=== PATIENT | male | born 1970 | race Caucasian/White ===

== ENCOUNTER 2021-10-31 08:35 | Inpatient (IN) | payer BC, SELFPAY ==
[2021-10-31] VITALS (27 sets, daily range): BP systolic 128–158; BP diastolic 70–87; PULSE 50–80; RESP 18–41; TEMP 36.3–36.8; O2SAT 90–98; BMI 27.9
--- NOTE | ~2021-10-31 | XR_ITS ---
XR chest 1V portable 10/31/2021 10:27 Indication: Shortness of breath. Covid infection. Procedure: AP portable chest Comparison: 06/19/2007 Findings: Borderline heart size. Diffuse bilateral airspace disease, compatible with pneumonia. Edema less favored. No pleural effusion or pneumothorax. No acute osseous abnormality. Impression: 1: Diffuse bilateral airspace disease, most likely pneumonia. Edema less favored. Clinically correlat e. Reviewed, dictated and finalized at location B. SKIVER Impression: 1: Diffuse bilateral airspace disease, most likely pneumonia. Edema less favore d. Clinically correlate.
--- NOTE | ~2021-10-31 | CT_ITS ---
EXAMINATION: CTA chest PE protocol EXAM DATE: 10/31/2021 14:24 INDICATION: Shortness of breath. COVID positive. TECHNIQUE: Spiral CTA of the chest (pulmonary arteries) was performed with 100 cc Omnipaque 350 intr avenous contrast injection. Images were acquired during the pulmonary arterial phase. Coronal maxi mum intensity projection 3D-reconstructions were created by the technologist on dedicated workstation . Axial, coronal and sagittal reformatted images were reviewed. The dose-length product (DLP) for t his examination was 459.16 mGy-cm. The exposure was tailored according to patient size (auto mA exp osure control), and iterative reconstruction (ASIR) was used as additional dose reduction technique. There is no prior study for comparison. FINDINGS: There are no pulmonary emboli in the 1st through 3rd order (central and interlobar) pulmon maria teresa arteries. Some loss of attenuation in the segmental pulmonary arteries from respiratory motion, some segmental regions not confidently evaluated. No intraluminal filling defects identified. No th oracic aortic dissection. Small to moderate right, small left pleural effusions. There is diffuse bilateral groundglass airspac e disease, appearance is consistent with acute COVID pneumonia. Tracheobronchial tree is patent. Th ere is no mediastinal, hilar or axillary lymphadenopathy. There is no pneumothorax. Heart normal in size. No evidence of coronary arterial calcification. There is small sliding gastroesophageal hi atal hernia. There is thoracic spondylosis without osteoblastic or osteolytic lesions identified. IMPRESSION: 1. No central pulmonary emboli. Some limitations evaluating segmental arteries. 2. Small to moderate right, small left pleural effusions. 3. Diffuse COVID pneumonia. 4. Small hiatal hernia. Reviewed, dictated and finalized at location A. AGE SMOKER IMPRESSION: 1. No central pulmonary emboli. Some limitations evaluating segmental arteries . 2. Small to moderate right, small left pleural effusions. 3. Diffuse COVID pneumonia. 4. Small hiatal hernia.
--- NOTE | ~2021-10-31 | US_ITS ---
EXAMINATION: US venous doppler LE EXAM DATE: 10/31/2021 14:53 INDICATION: Edema EDEMA, COVID+, SOB . TECHNIQUE: Multiple grayscale, color flow and Doppler images of the lower extremity deep venous syste ms bilaterally were obtained and reviewed. There is no prior study for comparison. FINDINGS: Right side: The right common femoral, femoral and profunda veins demonstrate normal color flow, respi ratory variation, augmentation and compressibility. Compressibility, color flow confirmed within the right popliteal, posterior tibial, peroneal, and greater saphenous veins. Left side: The left common femoral, femoral and profunda veins demonstrate normal color flow, respira tory variation, augmentation and compressibility. Compressibility, color flow confirmed within the l eft popliteal, posterior tibial, peroneal, and greater saphenous veins. IMPRESSION: 1. No lower extremity deep venous thrombosis bilaterally. Reviewed, dictated and finalized at location A. ARCH LEADER
[2021-10-31 09:29] LABS: Basophils Percent Auto 0.1 % (0.2-1.2); Hematocrit 42.3 % (42.0-52.0); Hemoglobin 14.3 g/dL (14.0-18.0); Immature Granulocyte Absolute 0.12 K/mm3 (0.00-0.031); Immature Granulocyte Percent A 1.4 % (0-0.5); Lymphocytes Absolute Auto 0.32 K/mm3 (0.9-3.2); Lymphocytes Percent Auto 3.8 % (18.3-44.2); Mean Corpuscular HGB Conc 33.8 g/dl (32-36); Mean Corpuscular Hemoglobin 30.6 pg (26-34); Mean Corpuscular Volume 90.6 fl (80-100); Mean Platelet Volume 10.1 fl (7.4-10.4); Monocytes Absolute Auto 0.5 K/mm3 (0.1-0.6); Neutrophils Absolute Auto 7.6 K/mm3 (1.3-6.7); Neutrophils Percent Auto 88.7 % (45.5-73.1); Platelet Count Result 178 k/mm3 (150-375); Red Blood Count 4.67 M/mm3 (4.6-6.20); Red Cell Distribution Width 12.2 % (11.5-14.5); White Blood Count 8.5 K/mm3 (4.5-10.0)
[2021-10-31 09:56] LABS: Alanine Aminotransferase 81 U/L (4-50); Albumin Level 2.9 g/dL (3.5-5.1); Alkaline Phosphatase 77 U/L (38-126); Anion Gap 7 mmol/L (8-16); Aspartate Amino Transferase 59 U/L (17-59); Bilirubin,Total 1.2 mg/dL (0.2-1.3); Blood Urea Nitrogen 25 mg/dL (9-20); Calcium 7.9 mg/dL (8.4-10.2); Carbon Dioxide 23 mmol/L (22-30); Chloride 108 mmol/L (98-107); Estimated CRCL calculation 104 ml/min; Estimated Glomerular Filt Rate > 60; Glucose 121 mg/dL (65-110); Potassium 3.7 mmol/L (3.4-5.0); Sodium 138 mmol/L (137-145)
--- NOTE | 2021-10-31 10:42 | ED.GENADULT ---
HPI - General Adult General Chief complaint: Shortness of Breath/Dyspnea Stated complaint: Covid+,SO Time Seen by Provider: 10/31/21 10:09 Source: patient History of Present Illness HPI narrative: Patient is a 51 y/o male complaining cough and SOB for about 9 days. He states that he coughs up phlegm and blood occasionally. He also has some back pain. He tested positive for COVID 5 days on [facility] and was admitted to [place]. He states that he left AMA there because the doctor wanted him to order online non FDA approved medicine used for treating livestock. He went home and was short of breath. He was using his mother's oxygen. Related Data Home Medications Medication Instructions Recorded Confirmed pantoprazole PO 10/31/21 ropinirole mg 10/31/21 Allergies Allergy/AdvReac Type Severity Reaction Status Date / Time Penicillins Allergy Rash Verified 10/31/21 10:31 codeine AdvReac Nausea and Verified 10/31/21 10:31 Vomiting Review of Systems Constitutional: Constitutional: Denies chills, Denies fever(s), Denies headache(s) and Denies weakness Eyes: Eyes: Denies blurry vision ENT: Denies headache(s) and Denies neck pain Cardiovascular: Cardiovascular: Denies chest pain and Reports dyspnea Respiratory: Respiratory: Reports cough and Reports dyspnea Gastrointestinal: Gastrointestinal: Denies abdominal pain, Denies diarrhea, Denies nausea and Denies vomiting Genitourinary: Genitourinary: Denies hematuria and Denies dysuria Musculoskeletal: Musculoskeletal: Reports back pain and Denies neck pain Neurologic: Denies headache(s) and Denies weakness [facility] Past Medical History Medical History (Updated 10/31/21 @ 16:03 by Steph Gupta MD) Gastroesophageal reflux disease Social History Social History (Updated 10/31/21 @ 13:02 by Taniya León PA-C) Social History: The patient lives in [place] with his . Exam Const: General: well developed, in distress and ill appearing Orientation/consciousness: oriented to person, oriented to place, oriented to time and patient oriented x3 HENMT: Head: normocephalic Ears: external ears normal General nose exam: Normal external nose present Eyes: General: appearance normal, both eyes and all related structures Conjunctivae: conjunctivae normal Neck: Neck: normal visual inspection and full ROM Chest: Chest palpation & inspection: normal inspection of the chest and no tenderness Resp: Effort & Inspection: tachypneic Auscultation: rales Cardio: Rate: regular rate Rhythm: regular rhythm GI: GI Palp: No abdominal tenderness and Yes Soft to palpation Skin: General skin exam: normal color and turgor normal Neuro: General: oriented to person, oriented to place, oriented to time and patient oriented x3 Cognition (Neuro): normal cognition Extrem: General: normal to inspection, full ROM and no pedal edema Psych: Appearance: grossly normal Mental Status: mental status grossly normal Affect: normal affect Course Consultations Consultation #1: Discussed with Dr. Merida, who agrees to admit. Date: 10/31/21 Time: 11:02 Vital Signs Vital signs: Vital Signs Temperature 36.3 C L 10/31/21 08:42 Pulse Rate 71 10/31/21 08:42 Respiratory Rate 26 H 10/31/21 08:42 Blood Pressure 134/70 10/31/21 08:42 Pulse Oximetry 95 10/31/21 08:42 Temperature 36.3 C L 10/31/21 08:42 Pulse Rate 61 10/31/21 15:30 Respiratory Rate 36 H 10/31/21 15:30 Blood Pressure 154/83 H 10/31/21 15:30 Pulse Oximetry 95 10/31/21 15:30 Medical Decision Making Vital Signs Vital Signs: Vital Signs Temperature 36.3 C L 10/31/21 08:42 Pulse Rate 71 10/31/21 08:42 Respiratory Rate 26 H 10/31/21 08:42 Blood Pressure 134/70 10/31/21 08:42 Pulse Oximetry 95 10/31/21 08:42 Temperature 36.3 C L 10/31/21 08:42 Pulse Rate 61 10/31/21 15:30 Respiratory Rate 36 H 10/31/21 15:30 Blood Pressure 154/83 H 10/31/21 15:
[2021-10-31 10:50] LABS: D Dimer 0.87 ug/mL (<0.48)
[2021-10-31] MEDS: DEXAMETHASONE SOD PHOS INJ 4 MG/ML VIAL 6 MG IV PUSH (10:54)
[2021-10-31] MEDS: REMDESIVIR 200 MG/NS 250 ML 200 MG/250 ML BAG 250 MG IVPB (11:45)
[2021-10-31 13:31] LABS: Alanine Aminotransferase 83 U/L (4-50); Estimated CRCL calculation 104 ml/min; Estimated Glomerular Filt Rate > 60; Prothrombin Time 13.3 Seconds (11.1-14.7)
--- NOTE | 2021-10-31 14:00 | PM.IMHP ---
H&P: HPI History of Present Illness Date/Time: 10/31/21 14:00 Chief Complaint: Shortness of breath. Narrative: This is a very pleasant 51-year-old male with GERD and restless leg syndrome who presented to the emergency department earlier this morning for evaluation of shortness of breath. He has not been feeling well for nearly 10 days and tested positive for COVID-19 last . In fact was hospitalized at [facility] for the same but he left that facility against medical advice this morning as he had some concerns with the recommended treatment. Per be patient's report, he was instructed to order ivermectin and a long list of vitamins from an online site and that made him uncomfortable. He came immediately to this facility and he has been requiring 4 L nasal cannula to maintain his oxygen saturations in the mid 90s. Chest CTA done on arrival showed no central pulmonary emboli, small to moderate right and small left pleural effusions, as well as diffuse COVID pneumonia. At the time my evaluation he is fatigued and weak. He continues to have a cough which is occasionally productive of clear or at times pink tinged sputum. He denies fever, chills, and sweats. His smell and taste are okay however his appetite has been decreased. He denies nausea and vomiting. Initially he had some diarrhea but that has cleared. It is my understanding that his family have had similar symptoms and are also positive for COVID. He did not receive the COVID vaccination. Review of Systems Review of Systems: Twelve systems were reviewed. No history of hypertension or diabetes. He reports some mild pulse nasal drip. No significant sore throat. He denies chest pain, pleuritic pain, and palpitations. No orthopnea or PND. He has developed some mild lower extremity edema since he was initially hospitalized. No history of cardiac disease or venous thromboembolism. Except as documented, all other systems were reviewed and are negative. [facility] Past Medical History Medical History (Updated 10/31/21 @ 19:56 by Taniya León PA-C) Diverticulitis Gastroesophageal reflux disease Restless leg syndrome Surgical History Surgical History (Updated 10/31/21 @ 19:53 by Taniya León PA-C) History of left inguinal hernia repair Family History Family History (Updated 10/31/21 @ 19:53 by Taniya León PA-C) Other Cancer Social History Social History (Updated 10/31/21 @ 19:54 by Taniya León PA-C) Social History: The patient lives in [place] with his and children. He works for [employer]. Lifelong nonsmoker. No alcohol or illicit substance abuse. He designates his Isai Grey as his surrogate decision maker and he wishes to be a full code. Meds Home Medications and Allergies Home Medications Medication Instructions Recorded Confirmed Type pantoprazole 40 mg PO BID 10/31/21 10/31/21 History ropinirole 0.5 mg PO HS PRN 10/31/21 10/31/21 History Allergies Allergy/AdvReac Type Severity Reaction Status Date / Time Penicillins Allergy Rash Verified 10/31/21 17:16 codeine AdvReac Nausea and Verified 10/31/21 17:16 Vomiting Vital Signs Vital Signs - 24 hr 10/31/21 08:42 10/31/21 10:08 10/31/21 10:09 Temperature 97.4 F L Pulse Rate 71 Respiratory Rate 26 H Blood Pressure 134/70 Pulse Oximetry 95 90 90 10/31/21 10:10 10/31/21 10:15 10/31/21 10:16 Temperature Pulse Rate 56 L 66 76 Respiratory Rate 32 H 29 H 32 H Blood Pressure 151/83 H 156/87 H Pulse Oximetry 97 98 98 10/31/21 10:20 10/31/21 10:28 10/31/21 10:30 Temperature Pulse Rate 74 69 Respiratory Rate 41 H 38 H Blood Pressure 158/86 H Pulse Oximetry 91 93 93 10/31/21 10:31 10/31/21 10:32 10/31/21 10:45 Temperature Pulse Rate 70 80 67 Respiratory Rate 39 H 36 H 37 H Blood Pressure 153/80 H 153/80 H Pulse Oximetry 93 90 93 10/31/21 10:55 10/31/21 11:00 10/31/21 11:01 [place]
[2021-10-31 14:56] LABS: Lactate Dehydrogenase 1127 U/L (313-618)
--- NOTE | 2021-10-31 17:18 | ADMGEN ---
This patient, Cristian Grey, was admitted to [facility] Surg Room 312-01 at 1700. Patient/family oriented to hospital policies and general routines including ID bracelet, bed and alarms, visiting hours, pain management, procedures, bathroom and other care routines, personal items, smoking policy, room service/diet, and visiting hours. Information on how to activate the Rapid Response Team has been discussed. Patient/Family are encouraged to report perceived risks to care and to ask questions if they do not understand what they are told or what they should do.
[2021-10-31 18:17] LABS: Procalcitonin 0.1 ng/mL
[2021-10-31] MEDS: ONDANSETRON INJ 4 MG/2 ML VIAL IV PUSH (18:33)
[2021-10-31] MEDS: ACETAMINOPHEN 325 MG TABLET 650 MG PO (18:33)
[2021-10-31 20:32] LABS: NT Pro B Type Natriuretic Pept 1050 pg/mL (5-100)
[2021-10-31] MEDS: ENOXAPARIN 40 MG/0.4 ML SYRINGE SUB-Q (21:34)
[2021-10-31] MEDS: FUROSEMIDE INJ 40 MG/4 ML VIAL 20 MG IV PUSH (21:44)
[2021-10-31] MEDS: PANTOPRAZOLE 40 MG TABLET PO (21:45)
[2021-10-31 22:26] LABS: Add Urine Microscopic? YES; Appearance Urine Clear (Clear); Bilirubin Urine Negative (Negative); Blood Urine Negative (Negative); Color Urine Yellow (Yellow); Glucose Urine UA Negative (Negative); Ketones Urine Negative (Negative); Leukocyte Esterase Ur Negative LEU/UL (Negative); Mucus Urine Rare /lpf; Nitrate Urine Negative (Negative); Protein Urine Negative (Negative); RBC Urine 0-2 /hpf (0-2); Specific Grav Ur 1.019 (1.001-1.035); Squamous Epithelial Cell Urine Rare /hpf (Few); WBC Urine 0-3 /hpf
[2021-11-01] VITALS (7 sets, daily range): BP systolic 117–146; BP diastolic 65–82; PULSE 50–80; RESP 18–20; TEMP 36.2–36.8; O2SAT 90–100
[2021-11-01] MEDS: ONDANSETRON INJ 4 MG/2 ML VIAL IV PUSH ×3 (00:31→22:38)
[2021-11-01] MEDS: ACETAMINOPHEN 325 MG TABLET 650 MG PO ×4 (00:34→22:38)
[2021-11-01 06:35] LABS: Hematocrit 39.1 % (42.0-52.0); Hemoglobin 13.6 g/dL (14.0-18.0); Mean Corpuscular HGB Conc 34.8 g/dl (32-36); Mean Corpuscular Hemoglobin 30.4 pg (26-34); Mean Corpuscular Volume 87.5 fl (80-100); Mean Platelet Volume 10.2 fl (7.4-10.4); Platelet Count Result 186 k/mm3 (150-375); Red Blood Count 4.47 M/mm3 (4.6-6.20); Red Cell Distribution Width 11.9 % (11.5-14.5); White Blood Count 6.4 K/mm3 (4.5-10.0)
[2021-11-01 06:46] LABS: INR 1.2; Prothrombin Time 14.7 Seconds (11.1-14.7)
[2021-11-01 06:47] LABS: Alanine Aminotransferase 76 U/L (4-50); Albumin Level 2.8 g/dL (3.5-5.1); Alkaline Phosphatase 67 U/L (38-126); Anion Gap 5 mmol/L (8-16); Aspartate Amino Transferase 50 U/L (17-59); Bilirubin,Total 1.5 mg/dL (0.2-1.3); Blood Urea Nitrogen 23 mg/dL (9-20); CRP 3.5 mg/dL (<1.0); Calcium 7.6 mg/dL (8.4-10.2); Carbon Dioxide 26 mmol/L (22-30); Chloride 105 mmol/L (98-107); Estimated CRCL calculation 117 ml/min; Estimated Glomerular Filt Rate > 60; Glucose 95 mg/dL (65-110); Lactate Dehydrogenase 887 U/L (313-618); Magnesium 2.3 mg/dL (1.6-2.3); Potassium 3.3 mmol/L (3.4-5.0); Sodium 136 mmol/L (137-145)
[2021-11-01 07:13] LABS: Thyroid Stimulating Hormone Reflex 0.972 uIU/mL (0.465-4.68)
[2021-11-01] MEDS: DEXAMETHASONE SOD PHOS INJ 4 MG/ML VIAL 6 MG IV PUSH (09:11)
[2021-11-01] MEDS: PANTOPRAZOLE 40 MG TABLET PO (09:13)
--- NOTE | 2021-11-01 09:13 | PM.IMPN ---
Progress Note: A&P Assessment and Plan (1) Acute respiratory failure with hypoxia: Code(s): J96.01 - Acute respiratory failure with hypoxia Status: Acute Assessment and Plan: related to bilateral COVID-19 pneumonia. No evidence of central pulmonary emboli on chest CTA though evaluation is limited in the segmental arteries, this seems less likely. He is currently requiring 4 L nasal cannula to keep his SpO2 in the mid 90s. (2) Pneumonia due to 2019-nCoV: Code(s): U07.1 - COVID-19; J12.82 - Pneumonia due to coronavirus disease 2019 Status: Acute Assessment and Plan: Continue dexamethasone 6 mg daily and remdesivir 100 mg daily. pendant record regarding dexamethasone and remdesivir at the outside facility and records have been requested for review. LDH is quite high at 1127 but his other inflammatory markers are not too high (CRP 3.0, ferritin 384, D-dimer 0.87). Should he have increasing oxygen requirements, tocilizumab or baricitinib should be considered and I discussed these with the patient. (3) Restless leg syndrome: Code(s): G25.81 - Restless legs syndrome Status: Acute Assessment and Plan: Continue ropinirole as needed. (4) Gastroesophageal reflux disease: Code(s): K21.9 - Gastro-esophageal reflux disease without esophagitis Status: Acute Assessment and Plan: Continue pantoprazole. (5) Pleural effusion: Code(s): J90 - Pleural effusion, not elsewhere classified Status: Acute Assessment and Plan: started IV Lasix Subjective Date/time seen: 11/01/21 09:13 Interval history: Patient seen and examined Patient feels week still short of breath on oxygen Patient denies fever headache chest I am seeing the patient for shortness of breath Exam Narrative: Alert Chest bilateral crackles and wheeze Abdomen nontender nondistended CVS S1 + S2 Lower extremity positive edema Objective Data Vital Signs Vital Signs: Vital Signs - 24 hr 10/31/21 10:08 10/31/21 10:09 10/31/21 10:10 Temperature Pulse Rate 56 L Respiratory Rate 32 H Blood Pressure 151/83 H Pulse Oximetry 90 90 97 10/31/21 10:15 10/31/21 10:16 10/31/21 10:20 Temperature Pulse Rate 66 76 74 Respiratory Rate 29 H 32 H 41 H Blood Pressure 156/87 H 158/86 H Pulse Oximetry 98 98 91 10/31/21 10:28 10/31/21 10:30 10/31/21 10:31 Temperature Pulse Rate 69 70 Respiratory Rate 38 H 39 H Blood Pressure 153/80 H Pulse Oximetry 93 93 93 10/31/21 10:32 10/31/21 10:45 10/31/21 10:55 Temperature Pulse Rate 80 67 Respiratory Rate 36 H 37 H Blood Pressure 153/80 H Pulse Oximetry 90 93 95 10/31/21 11:00 10/31/21 11:01 10/31/21 11:15 Temperature Pulse Rate 59 L 61 67 Respiratory Rate 35 H 35 H 24 H Blood Pressure 128/75 Pulse Oximetry 95 95 92 10/31/21 11:31 10/31/21 12:01 10/31/21 12:31 Temperature Pulse Rate 57 L 58 L 56 L Respiratory Rate 34 H 32 H 29 H Blood Pressure 140/73 153/77 H 157/80 H Pulse Oximetry 93 95 96 10/31/21 13:01 10/31/21 13:31 10/31/21 14:01 Temperature Pulse Rate 61 64 61 Respiratory Rate 26 H 21 H 35 H Blood Pressure 140/72 145/75 H 155/78 H Pulse Oximetry 96 96 95 10/31/21 15:30 10/31/21 16:00 10/31/21 17:09 Temperature 97.7 F Pulse Rate 61 73 78 Respiratory Rate 36 H 24 H Blood Pressure 154/83 H 143/82 H Pulse Oximetry 95 94 10/31/21 17:30 10/31/21 20:00 11/01/21 00:00 Temperature 98.2 F 97.2 F L Pulse Rate 50 L 62 Respiratory Rate 18 18 Blood Pressure 135/72 125/66 Pulse Oximetry 94 94 90 11/01/21 04:00 11/01/21 08:00 Temperature 98.3 F 98.1 F Pulse Rate 52 L 58 L Respiratory Rate 18 18 Blood Pressure 117/65 128/73 Pulse Oximetry 93 92 Intake/Output Intake/Output: Intake & Output 10/29/21 10/30/21 10/31/21 11/01/21 23:59 23:59 23:59 23:59 Intake Total 300 900 Output Total 1525 Balance 300 -625 Me
[2021-11-01] MEDS: REMDESIVIR 100 MG/NS 250 ML 100 MG/250 ML BAG 250 MG IVPB (10:26)
[2021-11-01] MEDS: FUROSEMIDE INJ 40 MG/4 ML VIAL IV PUSH (17:35)
--- NOTE | 2021-11-01 20:04 | ECHO_ITS ---
Patient Info Name: Cristian Grey Age: 51 years : 1970 Gender: Male Ht: 71 in Wt: 200 lbs BSA: 2.15 m2 HR: 63 bpm BP: 117 / 65 mmHg Heart Rhythm: Sinus Rhythm Technical Quality: Fair Exam Date: 11/01/2021 10:37 AM Exam Location: [facility] Room: 312 Patient Status: Inpatient Admit Date: 10/31/2021 Staff Ordering Physician: Taniya León PA-C Job Boss: LAURE/ROSY Attending Provider: Elise Merida MD Referring Physician: Romelia KAUR; Exam Type: CA echo doppler color flow Study Info Indications - PLEURAL EFFUSION EDEMA Complete two-dimensional, color flow and Doppler transthoracic echocardiogram is performed. Summary 1. Complete two-dimensional, color flow and Doppler transthoracic echocardiogram is performed. 2. Hyperdynamic left ventricular systolic function with no segmental wall motion abnormalities. Ejection fraction 75%. Normal left ventricular size and thickness, with normal diastolic function. 3. Left atrial chamber dimension is mildly enlarged. 4. No significant valve disease. 5. Possible patent foramen ovale suggested by color flow Doppler. 6. Normal sinus rhythm. Left Ventricle Left ventricular chamber dimension is normal. Left ventricular systolic function is hyperdynamic, estimated at >70%. There is no increased left ventricular wall thickness. Left ventricular septal wall motion is normal. The left ventricular diastolic function is normal. Right Ventricle Right ventricular chamber dimension is normal. Right ventricular systolic function is normal. Left Atria Left atrial chamber dimension is mildly enlarged. Right Atria Right atrial chamber dimension is normal. Aortic Valve The aortic valve is trileaflet. There is no aortic valve sclerosis. There is no aortic valve stenosis. There is no aortic valve regurgitation. Pulmonic Valve The pulmonic valve is normal. There is no pulmonic valve stenosis. There is no pulmonic regurgitation. Mitral Valve The mitral valve has normal leaflets. There is no mitral valve stenosis. There is no mitral valve regurgitation. Tricuspid Valve The tricuspid valve leaflets are normal. There is no significant tricuspid valve stenosis. There is no tricuspid valve regurgitation. No pulmonary hypertension, estimated pulmonary arterial systolic pressure is Empty. Pericardium/Pleural The pericardium appears normal. There is no pericardial effusion. Inferior Vena Cava Normal inferior vena cava with >50% collapse upon inspiration consistent with Empty right atrial pressure, Empty. Aorta The aortic root size at the sinus of Valsalva is normal. The prox ascending aorta size is normal. Left Ventricular Outflow Tract Name Value Normal LVOT 2D LVOT Diameter 2.0 cm LVOT Doppler LVOT Peak Gradient 15 mmHg LVOT Mean Gradient 7 mmHg LVOT VTI 46 cm LVOT VTI/AV VTI Ratio 1.1 LVOT Stroke Volume 147 ml LVOT CO
[2021-11-02] VITALS (7 sets, daily range): BP systolic 107–121; BP diastolic 50–71; PULSE 46–80; RESP 16–18; TEMP 35.8–36.9; O2SAT 90–98
[2021-11-02] MEDS: rOPINIRole HCL 0.5 MG TABLET PO ×2 (01:19→21:06)
[2021-11-02] MEDS: PANTOPRAZOLE 40 MG TABLET PO ×3 (01:34→21:01)
[2021-11-02] MEDS: ENOXAPARIN 40 MG/0.4 ML SYRINGE SUB-Q ×2 (01:34→21:01)
[2021-11-02 07:51] LABS: INR 1.1; Prothrombin Time 14.5 Seconds (11.1-14.7)
[2021-11-02 08:05] LABS: Alanine Aminotransferase 66 U/L (4-50); Estimated CRCL calculation 104 ml/min; Estimated Glomerular Filt Rate > 60
[2021-11-02] MEDS: FUROSEMIDE INJ 40 MG/4 ML VIAL IV PUSH (08:37)
[2021-11-02] MEDS: DEXAMETHASONE SOD PHOS INJ 4 MG/ML VIAL 6 MG IV PUSH (08:37)
--- NOTE | 2021-11-02 10:42 | PM.IMPN ---
Progress Note: A&P Assessment and Plan (1) Acute respiratory failure with hypoxia: Code(s): J96.01 - Acute respiratory failure with hypoxia Status: Acute Assessment and Plan: related to bilateral COVID-19 pneumonia. No evidence of central pulmonary emboli on chest CTA though evaluation is limited in the segmental arteries, this seems less likely. He is currently requiring 4 L nasal cannula to keep his SpO2 in the mid 90s. No significant change continue to monitor (2) Pneumonia due to 2019-nCoV: Code(s): U07.1 - COVID-19; J12.82 - Pneumonia due to coronavirus disease 2019 Status: Acute Assessment and Plan: Continue dexamethasone 6 mg daily and remdesivir 100 mg daily. pendant record regarding dexamethasone and remdesivir at the outside facility and records have been requested for review. LDH is quite high at 1127 but his other inflammatory markers are not too high (CRP 3.0, ferritin 384, D-dimer 0.87). Should he have increasing oxygen requirements, tocilizumab or baricitinib should be considered and I discussed these with the patient. (3) Restless leg syndrome: Code(s): G25.81 - Restless legs syndrome Status: Acute Assessment and Plan: Continue ropinirole as needed. (4) Gastroesophageal reflux disease: Code(s): K21.9 - Gastro-esophageal reflux disease without esophagitis Status: Acute Assessment and Plan: Continue pantoprazole. (5) Pleural effusion: Code(s): J90 - Pleural effusion, not elsewhere classified Status: Acute Assessment and Plan: Treated with IV Lasix reviewed echo DC IV Lasix for now continue to monitor daily weight (6) Abnormal echocardiogram: Code(s): R93.1 - Abnormal findings on diagnostic imaging of heart and coronary circulation Status: Acute Assessment and Plan: Probable patent foraminal valve follow-up with Cardiology as outpatient Subjective Date/time seen: 11/02/21 10:42 Interval history: Patient seen and examined Patient feels week still short of breath on oxygen better than yesterday Echo showed possible patent foramen ovale Patient denies fever headache chest I am seeing the patient for shortness of breath Exam Narrative: Alert Chest bilateral crackles and wheeze Abdomen nontender nondistended CVS S1 + S2 Lower extremity positive edema Objective Data Vital Signs Vital Signs: Vital Signs - 24 hr 11/01/21 12:00 11/01/21 16:00 11/01/21 20:00 Temperature 98.3 F 97.4 F L 97.9 F Pulse Rate 50 L 50 L 63 Respiratory Rate 20 18 18 Blood Pressure 146/82 H 119/75 130/78 Pulse Oximetry 93 100 94 11/01/21 20:05 11/02/21 00:00 11/02/21 04:00 Temperature 98.4 F 97.7 F Pulse Rate 63 51 L 46 L Respiratory Rate 18 16 16 Blood Pressure 111/62 117/67 Pulse Oximetry 94 93 94 11/02/21 08:00 Temperature 96.5 F L Pulse Rate 47 L Respiratory Rate 17 Blood Pressure 121/66 Pulse Oximetry 90 Intake/Output Intake/Output: Intake & Output 10/30/21 10/31/21 11/01/21 11/02/21 23:59 23:59 23:59 23:59 Intake Total 300 2772 920 Output Total 2225 1450 Balance 300 547 -530 Meds/Results Medications: Active Medications Generic Name Dose Route Start Last Admin Trade Name Freq PRN Reason Stop Dose Admin Acetaminophen 650 mg 10/31/21 18:17 11/01/21 22:38 Acetaminophen 325 Mg Tablet PO 650 mg Q6H PRN Administration Mild Pain (1-3) or Fever Albuterol 2 puff 10/31/21 20:04 Albuterol Sulfate (*Sp) Aerosol 1 Puff INHALATION QIDRT PRN Shortness Of Breath Dexamethasone Sodium Phosphate 6 mg 11/01/21 09:00 11/02/21 08:37 Dexamethasone Sod Phos Inj 4 Mg/Ml Vial IV PUSH 11/10/21 09:01 6 mg DAILY MAKENZIE Administration Enoxaparin Sodium 40 mg 10/31/21 21:00 11/02/21 01:34 Enoxaparin 40 Mg/0.4 Ml Syringe SUB-Q 40 mg DAILY@2100 MAKENZIE Administration Furosemide 40 mg 11/01/21 17:00 11/02/21 08:37 Furosemide
[2021-11-02] MEDS: REMDESIVIR 100 MG/NS 250 ML 100 MG/250 ML BAG 250 MG IVPB (10:51)
[2021-11-02] MEDS: ACETAMINOPHEN 325 MG TABLET 650 MG PO (11:40)
[2021-11-03] VITALS (10 sets, daily range): BP systolic 103–123; BP diastolic 62–70; PULSE 50–65; RESP 16–18; TEMP 36–36.9; O2SAT 94–99
[2021-11-03 07:01] LABS: INR 1.1; Prothrombin Time 13.7 Seconds (11.1-14.7)
[2021-11-03 07:09] LABS: Alanine Aminotransferase 64 U/L (4-50); Estimated CRCL calculation 117 ml/min; Estimated Glomerular Filt Rate > 60
--- NOTE | 2021-11-03 09:32 | PM.IMPN ---
Progress Note: A&P Assessment and Plan (1) Acute respiratory failure with hypoxia: Code(s): J96.01 - Acute respiratory failure with hypoxia Status: Acute Assessment and Plan: related to bilateral COVID-19 pneumonia. No evidence of central pulmonary emboli on chest CTA though evaluation is limited in the segmental arteries, this seems less likely. He is currently requiring 4 L nasal cannula to keep his SpO2 in the mid 90s. No significant change continue to monitor (2) Pneumonia due to 2019-nCoV: Code(s): U07.1 - COVID-19; J12.82 - Pneumonia due to coronavirus disease 2019 Status: Acute Assessment and Plan: Continue dexamethasone 6 mg daily day for and remdesivir 100 mg daily day 4. Attending record regarding dexamethasone and remdesivir at the outside facility and records have been requested for review. LDH is quite high at 1127 but his other inflammatory markers are not too high (CRP 3.0, ferritin 384, D-dimer 0.87). Should he have increasing oxygen requirements, tocilizumab or baricitinib should be considered Recheck inflammatory markers in a.m. (3) Restless leg syndrome: Code(s): G25.81 - Restless legs syndrome Status: Acute Assessment and Plan: Continue ropinirole as needed. (4) Gastroesophageal reflux disease: Code(s): K21.9 - Gastro-esophageal reflux disease without esophagitis Status: Acute Assessment and Plan: Continue pantoprazole. (5) Pleural effusion: Code(s): J90 - Pleural effusion, not elsewhere classified Status: Acute Assessment and Plan: BNP 1050. Bilateral pleural effusion right more than left Treated with IV Lasix reviewed echo DC IV Lasix for now continue to monitor daily weight Echo with ejection fraction 75% normal size and thickness normal diastolic function left atrial chamber mildly enlarged, possible patent foramen ovale (6) Abnormal echocardiogram: Code(s): R93.1 - Abnormal findings on diagnostic imaging of heart and coronary circulation Status: Acute Assessment and Plan: Probable patent foraminal valve follow-up with Cardiology as outpatient Subjective Date/time seen: 11/03/21 09:32 Interval history: No overnight events. Remains afebrile. Feeling little better still has cough with the expectoration. Remains on same amount of oxygen today no chest pain Review of Systems Review of Systems: All systems reviewed & are unremarkable except as noted in HPI and below (HPI) Exam Narrative: GENERAL: The patient is well developed, not in acute distress HEENT: Nonicteric sclerae, PERRLA, EOMI. Oropharynx clear. Moist mucous membranes. Conjunctivae appear well perfused. CHEST: Chest wall is nontender. HEART: Regular rate and rhythm without murmur, rubs, or gallops LUNGS: Coarse breath sounds bilaterally. no respiratory distress ABDOMEN: Soft, positive bowel sounds, non-tender, no organomegaly. SKIN: No rash, no excessive bruising, petechiae, or purpura. NEUROLOGIC: Cranial nerves II-XII intact, alert and oriented x 3, no gross motor deficits EXTREMITIES: no edema, cyanosis or clubbing Objective Data Vital Signs Vital Signs: Vital Signs - 24 hr 11/02/21 11:36 11/02/21 12:00 11/02/21 16:00 Temperature 96.8 F L 97.3 F L Pulse Rate 80 56 L 62 Respiratory Rate 18 18 Blood Pressure 120/71 107/50 L Pulse Oximetry 95 98 11/02/21 20:00 11/03/21 00:00 11/03/21 00:38 Temperature 97.5 F L 97.0 F L Pulse Rate 54 L 54 L 54 L Respiratory Rate 16 16 Blood Pressure 113/67 111/70 Pulse Oximetry 94 94 11/03/21 04:00 11/03/21 08:00 Temperature 97.0 F L 96.8 F L Pulse Rate 50 L 51 L Respiratory Rate 16 16 Blood Pressure 103/62 112/67 Pulse Oximetry 94 96 Intake/Output Intake/Output: Intake & Output 10/31/21 11/01/21 11/02/21 11/03/21 23:59 23:59 23:59 23:59 Intake Total 300 2772 2030 200 Output Total 2225 2550 1000 Balance 300 289 -371 -298 Meds/R
[2021-11-03] MEDS: DEXAMETHASONE SOD PHOS INJ 4 MG/ML VIAL 6 MG IV PUSH (09:42)
[2021-11-03] MEDS: PANTOPRAZOLE 40 MG TABLET PO ×2 (09:42→21:08)
[2021-11-03] MEDS: REMDESIVIR 100 MG/NS 250 ML 100 MG/250 ML BAG 250 MG IVPB (11:00)
[2021-11-03] MEDS: ENOXAPARIN 40 MG/0.4 ML SYRINGE SUB-Q (21:08)
[2021-11-03] MEDS: rOPINIRole HCL 0.5 MG TABLET PO (22:51)
[2021-11-04] VITALS (9 sets, daily range): BP systolic 103–117; BP diastolic 54–72; PULSE 45–77; RESP 15–20; TEMP 36.1–36.8; O2SAT 91–98
[2021-11-04 06:25] LABS: Basophils Percent Auto 0.2 % (0.2-1.2); Eosinophils Absolute Auto 0.1 K/mm3 (0-0.3); Eosinophils Percent Auto 1.8 % (0-4.4); Hematocrit 39.6 % (42.0-52.0); Hemoglobin 13.7 g/dL (14.0-18.0); Immature Granulocyte Absolute 0.05 K/mm3 (0.00-0.031); Lymphocytes Absolute Auto 0.72 K/mm3 (0.9-3.2); Lymphocytes Percent Auto 14.6 % (18.3-44.2); Mean Corpuscular HGB Conc 34.6 g/dl (32-36); Mean Corpuscular Volume 86.7 fl (80-100); Mean Platelet Volume 10.1 fl (7.4-10.4); Monocytes Absolute Auto 0.6 K/mm3 (0.1-0.6); Neutrophils Absolute Auto 3.5 K/mm3 (1.3-6.7); Neutrophils Percent Auto 70.4 % (45.5-73.1); Platelet Count Result 217 k/mm3 (150-375); Red Blood Count 4.57 M/mm3 (4.6-6.20); Red Cell Distribution Width 11.5 % (11.5-14.5); White Blood Count 4.9 K/mm3 (4.5-10.0)
[2021-11-04 06:34] LABS: Prothrombin Time 13.2 Seconds (11.1-14.7)
[2021-11-04 06:38] LABS: Alanine Aminotransferase 80 U/L (4-50); Anion Gap 4 mmol/L (8-16); Blood Urea Nitrogen 20 mg/dL (9-20); CRP 1.6 mg/dL (<1.0); Carbon Dioxide 28 mmol/L (22-30); Chloride 101 mmol/L (98-107); Estimated CRCL calculation 117 ml/min; Estimated Glomerular Filt Rate > 60; Glucose 98 mg/dL (65-110); Lactate Dehydrogenase 718 U/L (313-618); Potassium 3.9 mmol/L (3.4-5.0); Sodium 133 mmol/L (137-145)
[2021-11-04] MEDS: DEXAMETHASONE SOD PHOS INJ 4 MG/ML VIAL 6 MG IV PUSH (08:23)
[2021-11-04] MEDS: PANTOPRAZOLE 40 MG TABLET PO (08:23)
[2021-11-04] MEDS: REMDESIVIR 100 MG/NS 250 ML 100 MG/250 ML BAG 250 MG IVPB (11:05)
--- NOTE | 2021-11-04 12:27 | PM.IMPN ---
Progress Note: A&P Assessment and Plan (1) Acute respiratory failure with hypoxia: Code(s): J96.01 - Acute respiratory failure with hypoxia Status: Acute Assessment and Plan: related to bilateral COVID-19 pneumonia. No evidence of central pulmonary emboli on chest CTA though evaluation is limited in the segmental arteries, this seems less likely. He is currently requiring 4 L nasal cannula to keep his SpO2 in the mid 90s. Oxygen requirement is better today inflammatory markers improved (2) Pneumonia due to 2019-nCoV: Code(s): U07.1 - COVID-19; J12.82 - Pneumonia due to coronavirus disease 2019 Status: Acute Assessment and Plan: Continue dexamethasone 6 mg daily day 5 and remdesivir 100 mg daily day 5. Attending record regarding dexamethasone and remdesivir at the outside facility and records have been requested for review. LDH is quite high at 1127 but his other inflammatory markers are not too high (CRP 3.0, ferritin 384, D-dimer 0.87). Should he have increasing oxygen requirements, tocilizumab or baricitinib should be considered Recheck inflammatory markers slowly improving CRP lower LDH lower (3) Restless leg syndrome: Code(s): G25.81 - Restless legs syndrome Status: Acute Assessment and Plan: Continue ropinirole as needed. (4) Gastroesophageal reflux disease: Code(s): K21.9 - Gastro-esophageal reflux disease without esophagitis Status: Acute Assessment and Plan: Continue pantoprazole. (5) Pleural effusion: Code(s): J90 - Pleural effusion, not elsewhere classified Status: Acute Assessment and Plan: BNP 1050. Bilateral pleural effusion right more than left Treated with IV Lasix reviewed echo DC IV Lasix for now continue to monitor daily weight Echo with ejection fraction 75% normal size and thickness normal diastolic function left atrial chamber mildly enlarged, possible patent foramen ovale (6) Abnormal echocardiogram: Code(s): R93.1 - Abnormal findings on diagnostic imaging of heart and coronary circulation Status: Acute Assessment and Plan: Probable patent foraminal valve follow-up with Cardiology as outpatient Subjective Date/time seen: 11/04/21 12:27 Interval history: No overnight events. Oxygen requirement is down to 2 L. remains afebrile. Labs reviewed patient seen and examined Review of Systems Review of Systems: All systems reviewed & are unremarkable except as noted in HPI and below (HPI) Exam Narrative: GENERAL: The patient is well developed, not in acute distress HEENT: Nonicteric sclerae, PERRLA, EOMI. Oropharynx clear. Moist mucous membranes. Conjunctivae appear well perfused. CHEST: Chest wall is nontender. HEART: Regular rate and rhythm without murmur, rubs, or gallops LUNGS: Coarse breath sounds bilaterally. no respiratory distress ABDOMEN: Soft, positive bowel sounds, non-tender, no organomegaly. SKIN: No rash, no excessive bruising, petechiae, or purpura. NEUROLOGIC: Cranial nerves II-XII intact, alert and oriented x 3, no gross motor deficits EXTREMITIES: no edema, cyanosis or clubbing Objective Data Vital Signs Vital Signs: Vital Signs - 24 hr 11/03/21 15:55 11/03/21 16:00 11/03/21 20:00 Temperature 97.4 F L 98.5 F Pulse Rate 55 L 65 52 L Respiratory Rate 17 18 Blood Pressure 109/62 123/64 Pulse Oximetry 98 99 11/03/21 20:05 11/04/21 00:00 11/04/21 04:00 Temperature 96.9 F L 98.2 F Pulse Rate 52 L 77 51 L Respiratory Rate 18 18 18 Blood Pressure 106/54 L 103/55 L Pulse Oximetry 99 97 98 11/04/21 08:00 11/04/21 08:24 Temperature 97.0 F L Pulse Rate 54 L 60 Respiratory Rate 16 Blood Pressure 117/66 Pulse Oximetry 98 98 Intake/Output Intake/Output: Intake & Output 11/01/21 11/02/21 11/03/21 11/04/21 23:59 23:59 23:59 23:59 Intake Total 2772 2330 1332 1118 Output Total 2225 2550 1000 700 Balance 547 -220 332 418 Meds/Resu
--- NOTE | 2021-11-04 15:45 | HOMEO2EVAL ---
Evaluation was performed at [facility] Home Oxygen Evaluation RC: Home Oxygen (O2) Evaluation Start: 11/04/21 14:04 Freq: ONCE Status: Active Protocol: RPE Activity Type Activity Date Activity User E-Sign Co-Sign Detail Recorded Client Recorded Date Recorded By Document 11/04/21 15:37 CLC [id number] 11/04/21 15:44 CLC Document 11/04/21 15:40 CLC [id number] 11/04/21 15:44 CLC 11/04/21 11/04/21 15:37 15:40 Home O2 Evaluation Test Phase Resting Exercise Oxygen Delivery Room Air Room Air Pulse Oximetry (90-100 %) 91 94 Pulse Rate (60-100 beats/min) 58 L 74 Activity Tolerance Excellent Ambulation Distance (feet) 300 Treatment Charges O2 Evaluation - Inpatient
--- NOTE | 2021-11-04 16:50 | PM.DS ---
DS: Admitting Diagnosis Discharge Date 11/04/2021 Admitting Diagnosis COVID pneumonia DS: Discharge Diagnosis Discharge Diagnosis (1) Acute respiratory failure with hypoxia: Code(s): J96.01 - Acute respiratory failure with hypoxia Status: Acute Assessment and Plan: related to bilateral COVID-19 pneumonia. No evidence of central pulmonary emboli on chest CTA though evaluation is limited in the segmental arteries, this seems less likely. He was requiring 4 L nasal cannula to keep his SpO2 in the mid 90s. Oxygen requirement continue to improve with no oxygen required at the time of discharge. There was also improvement in his inflammatory markers that will monitor during the hospital stay. (2) Pneumonia due to 2019-nCoV: Code(s): U07.1 - COVID-19; J12.82 - Pneumonia due to coronavirus disease 2018 Status: Acute Assessment and Plan: Continue dexamethasone 6 mg daily day 5 and remdesivir 100 mg daily day 5. Attending record regarding dexamethasone and remdesivir at the outside facility and records have been requested for review. LDH is quite high at 1127 but his other inflammatory markers are not too high (CRP 3.0, ferritin 384, D-dimer 0.87). Should he have increasing oxygen requirements, tocilizumab or baricitinib should be considered Recheck inflammatory markers slowly improving CRP lower LDH lower Finishes remdesivir course during the hospital stay in Will continue Decadron 6 mg p.o. daily for total 10 days course (3) Restless leg syndrome: Code(s): G25.81 - Restless legs syndrome Status: Acute Assessment and Plan: Continue ropinirole as needed. (4) Gastroesophageal reflux disease: Code(s): K21.9 - Gastro-esophageal reflux disease without esophagitis Status: Acute Assessment and Plan: Continue pantoprazole. (5) Pleural effusion: Code(s): J90 - Pleural effusion, not elsewhere classified Status: Acute Assessment and Plan: BNP 1050. Bilateral pleural effusion right more than left Treated with IV Lasix reviewed echo DC IV Lasix for now continue to monitor daily weight Echo with ejection fraction 75% normal size and thickness normal diastolic function left atrial chamber mildly enlarged, possible patent foramen ovale (6) Abnormal echocardiogram: Code(s): R93.1 - Abnormal findings on diagnostic imaging of heart and coronary circulation Status: Acute Assessment and Plan: Probable patent foraminal valve follow-up with Cardiology as outpatient DS: Summary Hospital Course Hospital Course: See above Time Spent with Patient Time attestation: Total time spent providing and/or coordinating discharge services: 45 minutes Exam Narrative: GENERAL: The patient is well developed, not in acute distress HEENT: Nonicteric sclerae, PERRLA, EOMI. Oropharynx clear. Moist mucous membranes. Conjunctivae appear well perfused. CHEST: Chest wall is nontender. HEART: Regular rate and rhythm without murmur, rubs, or gallops LUNGS: Coarse breath sounds bilaterally. no respiratory distress ABDOMEN: Soft, positive bowel sounds, non-tender, no organomegaly. SKIN: No rash, no excessive bruising, petechiae, or purpura. NEUROLOGIC: Cranial nerves II-XII intact, alert and oriented x 3, no gross motor deficits EXTREMITIES: no edema, cyanosis or clubbing DS: Data Data Completed and Pending Labs on day of discharge: Labs from last 24 hours 11/04/21 11/04/21 11/04/21 06:07 06:07 06:07 WBC 4.9 RBC 4.57 L Hgb 13.7 L Hct 39.6 L MCV 86.7 MCH 30.0 MCHC 34.6 RDW 11.5 Plt Count 217 MPV 10.1 Immature Gran % (Auto) 1.0 H Neut % (Auto) 70.4 Lymph % (Auto) 14.6 L Dixon % (Auto) 12.0 H Eos % (Auto) 1.8 Baso % (Auto) 0.2 Lymph # (Auto) 0.72 L Dixon # (Auto) 0.6 Eos # (Auto) 0.1 Baso # (Auto) 0.0 Abs Immat Gran (auto) 0.05 H Absolute Neuts (auto) 3.5 Absolute Nucl
== END 2021-11-04 18:35 | disposition home or self-care (01) | DRG 177 ==
LOC: ANHED 10:58 → ANH3MEDSUR 14:41
PROVIDERS: Physician Assistant; Admitting Provider Family Medicine; Emergency Provider Emergency Medicine; PCP Family Medicine; Visit Provider Internal Medicine
DX: U07.1 COVID-19 (principal); J12.82 Pneumonia due to coronavirus disease 2019; J96.01 Acute respiratory failure with hypoxia; J91.8 Pleural effusion in other conditions classified elsewhere; G25.81 Restless legs syndrome; K21.9 Gastro-esophageal reflux disease without esophagitis; R93.1 Abnormal findings on diagnostic imaging of heart and coronary circulation; Z79.899 Other long term (current) drug therapy; Z88.0 Allergy status to penicillin; Z88.8 Allergy status to other drugs, medicaments and biological substances
CPT/HCPCS: 36415; 71045; 71275; 80048; 80053; 81001; 82565; 82728; 83615; 83735; 83880; 84145; 84443; 84460; 85025; 85027; 85380; 85610; 86140; 87070; 87205; 93306; 93970; 94618; 96374; 99291; A9270; J0456; J0696; J1100; J1650; J1940; J2405; Q9967

== ENCOUNTER 2022-06-17 18:30 | Emergency (ER) | payer BC, SELFPAY ==
--- NOTE | ~2022-06-17 | XR_ITS ---
EXAM: XR finger 2nd LT min 2V DATE: 06/17/2022 19:14 HISTORY: SMASHED FINGER 1 WEEK AGO, SWELLING,PAIN/PUSTO TIP OF FINGER . COMPARISON: None available. FINDINGS: Normal mineralization. No fracture or dislocation. No lytic or blastic lesion. Osteoarthri tic changes, most evident in the DIP and trapeziometacarpal joints. No erosion or periosteal change. Focal soft tissue swelling over the nail/nailbed. IMPRESSION: No acute osseous finding in the left second digit. Distal soft tissue swelling. Reviewed, dictated and finalized at location K. IMPRESSION: No acute osseous finding in the left second digit. Distal soft tiss ue swelling.
[2022-06-17 18:46] VITALS: BP 153/81; PULSE 52; RESP 18; TEMP 36.3; O2SAT 100
--- NOTE | 2022-06-17 21:04 | ED.UPPEXIN ---
HPI - Extremity Injury (Upper) General Chief Complaint: Extremity Injury, Upper Stated Complaint: finger injury Time Seen by Provider: 06/17/22 20:36 History of Present Illness HPI narrative: Patient is a 52-year-old male here for evaluation of pain and swelling around his left second fingertip. Patient states that he smashed his finger in between a wood siding board about a week ago. States that he noted some redness and swelling around his fingertip developed about 2 days ago. He presented to urgent care facility today, who attempted drainage but was unsuccessful so sent him to the ED. He denies any fevers, chills, swelling of the proximal finger. He has not attempted any medication for pain. Related Data Home Medications Medication Instructions Recorded Confirmed pantoprazole 40 mg tablet,delayed 40 mg PO BID 10/31/21 10/31/21 release ropinirole 0.5 mg tablet 0.5 mg PO HS PRN Restless Leg 10/31/21 10/31/21 Syndrome Allergies Allergy/AdvReac Type Severity Reaction Status Date / Time codeine Allergy Nausea and Verified 06/17/22 19:43 Vomiting Penicillins Allergy Rash Verified 10/31/21 17:16 Review of Systems Review of Systems: Gen.: Denies fevers or chills Eyes: Denies eye pain or visual change ENT: Denies congestion Respiratory: Denies shortness of breath or cough CV: Denies chest pain or palpitations GI: Denies abdominal pain nausea, emesis or diarrhea denies burning, urgency, frequency or hematuria Musculoskeletal: Denies back pain or muscle pain Neuro: Denies numbness, tingling, weakness or focal weakness Skin: Reports left 2nd fingertip swelling redness Except as documented, all other systems reviewed and negative PMFSH Past Medical History Medical History Diverticulitis Gastroesophageal reflux disease Restless leg syndrome Surgical History Surgical History History of left inguinal hernia repair Family History Family History (Updated 10/31/21 @ 19:53 by Taniya León PA-C) Other Cancer Social History Social History (Updated 10/31/21 @ 19:54 by Taniya León PA-C) Social History: The patient lives in [place] with his and children. He works for [employer]. Lifelong nonsmoker. No alcohol or illicit substance abuse. He designates his Isai Grey as his surrogate decision maker and he wishes to be a full code. Exam Narrative: Gen: Alert, oriented, no acute distress Eyes: EOMI, no icterus Pulm: Respirations even and unlabored, symmetric thorax expansion, no audible stridor or visible cyanosis CV: Regular rate per telemetry GI: No distension, no voluntary/involuntary guarding Neuro: AOx4, moves all extremities without apparent difficulty or weakness, follows commands Skin: Left second digit has area of swelling and fluctuance around the nailbed. No tenderness along flexor tendon. No swelling along the digit. Full range of motion in the digit. Psych: Normal mood/affect, insight/judgement good, adequate fund of knowledge, recent/remote memory intact Course Course Emergency Course: Paronychia was drained with 18-gauge needle, and patient tolerated procedure well, large amount of purulent material expressed from finger with resolution of symptoms. Vital Signs Vital signs: Vital Signs Temperature 97.3 F L 06/17/22 18:46 Pulse Rate 52 L 06/17/22 18:46 Respiratory Rate 18 06/17/22 18:46 Blood Pressure 153/81 H 06/17/22 18:46 Pulse Oximetry 100 06/17/22 18:46 Oxygen Delivery Room Air 06/17/22 18:46 Temperature 97.3 F L 06/17/22 18:46 Pulse Rate 52 L 06/17/22 18:46 Respiratory Rate 18 06/17/22 18:46 Blood Pressure 153/81 H 06/17/22 18:46 Pulse Oximetry 100 06/17/22 18:46 Oxygen Delivery Room Air 06/17/22 18:46 MDM - Extremity Injury (Upper) MDM Narrative Medical decision making na
== END 2022-06-17 21:28 | disposition home or self-care (01) ==
PROVIDERS: Emergency Provider Emergency Medicine; PCP Family Medicine
DX: L03.012 Cellulitis of left finger (principal); K21.9 Gastro-esophageal reflux disease without esophagitis; G25.81 Restless legs syndrome
CPT/HCPCS: 73140; 99283

== ENCOUNTER 2022-11-03 10:34 | Emergency (ER) | payer OTHER, BC, SELFPAY ==
--- NOTE | ~2022-11-03 | XR_ITS ---
XR foot RT min 3V 11/03/2022 11:55 INDICATION: Right foot pain PROCEDURE: 4 views right foot COMPARISON: No prior studies for comparison. FINDINGS: There is a healing fracture proximal shaft of the fifth metatarsal with subtle periosteal r eaction. The soft tissues appear within normal limits. No foreign bodies are identified. IMPRESSION: 1: Healing nondisplaced fracture proximal shaft of the right fifth metatarsal. Reviewed, dictated and finalized at location A. INE ATTENDANT
[2022-11-03 11:11] VITALS: BP 162/94; PULSE 64; RESP 16; TEMP 36.6; O2SAT 97
--- NOTE | 2022-11-03 12:17 | ED.LOWEXIN ---
HPI - Extremity Injury (Lower) General Chief Complaint: Extremity Injury, Lower Stated Complaint: foot injury Time Seen by Provider: 11/03/22 11:55 History of Present Illness HPI Narrative: 52-year-old male presenting to the emergency department for evaluation of an injury to his right foot. Patient states on Saturday he was at work when he missed a step causing him to roll his right foot. Patient reports pain of the foot denies any significant pain of the ankle. Patient states the pain is worsened with ambulation. Related Data Home Medications Medication Instructions Recorded Confirmed pantoprazole 40 mg tablet,delayed 40 mg PO BID 10/31/21 10/31/21 release ropinirole 0.5 mg tablet 0.5 mg PO HS PRN Restless Leg 10/31/21 10/31/21 Syndrome Allergies Allergy/AdvReac Type Severity Reaction Status Date / Time codeine Allergy Nausea and Verified 06/17/22 19:43 Vomiting Penicillins Allergy Rash Verified 10/31/21 17:16 Review of Systems Review of Systems: CONSTITUTIONAL: Denies fever, chills, or sweats. EYES: Denies visual changes, redness, or discharge. ENT: Denies rhinorrhea, congestion, sore throat, or otalgia. CARDIOVASCULAR: Denies chest pain, palpitations, or edema. RESPIRATORY: Denies cough or dyspnea. GASTROINTESTINAL: Denies abdominal pain, nausea, vomiting, or diarrhea. GENITOURINARY: Denies dysuria or hematuria. SKIN: Denies rash or itching. MUSCULOSKELETAL: See HPI NEUROLOGIC: Denies headache, numbness, or weakness. [facility] Past Medical History Medical History Diverticulitis Gastroesophageal reflux disease Restless leg syndrome Surgical History Surgical History History of left inguinal hernia repair Family History Family History (Updated 10/31/21 @ 19:53 by Taniya León PA-C) Other Cancer Social History Social History (Updated 10/31/21 @ 19:54 by Taniya León PA-C) Social History: The patient lives in [place] with his and children. He works for [employer]. Lifelong nonsmoker. No alcohol or illicit substance abuse. He designates his Isai Grey as his surrogate decision maker and he wishes to be a full code. Exam Narrative: APPEARANCE: Well appearing, no pain, no distress, well-nourished. HEAD: normocephalic, atraumatic. EYES: PERRLA/EOMI, conjunctivae clear. NOSE: Normal no drainage NECK: Supple. No adenopathy, no masses. RESPIRATORY: Airway patent, respirations nonlabored. Clear to auscultation bilaterally, no rales, rhonchi, wheezing. CARDIOVASCULAR: Regular rate and rhythm without murmurs rubs or gallops. ABDOMINAL: Soft, nontender, nondistended, normal bowel sounds MUSCULOSKELETAL: No tenderness to right knee, proximal tib-fib, right ankle. Some tenderness to lateral foot. NEURO: Alert. Cranial nerves II through XII intact. Grossly intact SKIN: Warm, dry. Normal Color Course Vital Signs Vital signs: Vital Signs Temperature 97.8 F 11/03/22 11:11 Pulse Rate 64 11/03/22 11:11 Respiratory Rate 16 11/03/22 11:11 Blood Pressure 162/94 H 11/03/22 11:11 Pulse Oximetry 97 11/03/22 11:11 Oxygen Delivery Room Air 11/03/22 11:11 Temperature 97.8 F 11/03/22 11:11 Pulse Rate 64 11/03/22 11:11 Respiratory Rate 16 11/03/22 11:11 Blood Pressure 162/94 H 11/03/22 11:11 Pulse Oximetry 97 11/03/22 11:11 Oxygen Delivery Room Air 11/03/22 11:11 MDM - Extremity Injury (Lower) Imaging Data Radiologist's impression: Impressions Foot X-Ray 11/03/22 11:59 IMPRESSION: 1: Healing nondisplaced fracture proximal shaft of the right fifth metatarsal. Discharge Plan Discharge Clinical Impression: Fracture of fifth metatarsal bone Qualifiers: Encounter type: initial encounter Fracture type: closed Fracture alignment: nondisplaced Laterality: right Qualified Code(s
== END 2022-11-03 12:49 | disposition home or self-care (01) ==
PROVIDERS: Emergency Provider Emergency Medicine; PCP Family Medicine
DX: S92.354A Nondisplaced fracture of fifth metatarsal bone, right foot, initial encounter for closed fracture (principal); X50.0XXA Overexertion from strenuous movement or load, initial encounter
CPT/HCPCS: 73630; 99284

== ENCOUNTER 2024-12-21 09:19 | Outpatient (CLI) | payer BC, SELFPAY ==
--- NOTE | ~2024-12-21 | XR_ITS ---
EXAMINATION: XR lumbar spine 2-3V DATE: 12/21/2024 09:41 INDICATION: Low back pain. TECHNIQUE: 3 views of lumbar spine were obtained. COMPARISON: None. FINDINGS: Bone alignment is normal. There is mild chronic anterior wedging of T12 and L1 vertebral yun dies. Intervertebral disc heights are normal. There are endplate osteophytes at multiple levels. Ther e is multilevel facet joint osteoarthritis, severe in lower lumbar spine. IMPRESSION: 1. Mild lumbar spondylosis. Reviewed, dictated and finalized at location B. OR ANALYST IMPRESSION: 1. Mild lumbar spondylosis.
--- OUTSIDE RECORDS SUMMARY | 2024-12-24 12:23 | XMS_ITS | Referral Summary ---
Author Organization [facility] [email or web address] Address [address] [place] [address] Care Team Providers Care Commander Internal Affairs Name Role Phone Carla Whiteside MD Primary Care Provider [phone] Source Comments [facility] [email or web address],non-owned [facility] and Associated Physician Practices is amultiple site organization consisting of ambulatory clinics and hospital sitesin [place], [place], [place] and [place]. This disclosure is being madepursuant to the Care Everywhere program and may not contain all information available regarding this patient. Last updated 18.[facility] [email or web address] Allergies Active Allergy Reactions Criticality Noted Date Comments Penicillins Rash Medium 04/04/2017 Medications * Be aware that medications may not be up to date on this document. Alwaysverify current medications with the patient. Medication Sig Dispensed Refills Start Date End Date Status PANTOPRAZOLE SODIUM PO Ac tive Active Problems No known active problems Social History Tobacco Use Types Packs/Day Years Used Date Smoking Tobacco: Never Sex and Gender Information Value Date Recorded Sex Assigned at Not on file Gender Identity Not on file Sexual Orientation Not on file Last Filed Vital Signs Vital Sign Reading Time Taken Comments Blood Pressure 120/72 04/04/2017 3:18 PM CDT Pulse 64 04/04/2017 3:18 PM CDT Temperature 36.7 ??C (98 ??F) 04/04/2017 3:18 PM CDT Respiratory Rate 16 04/04/2017 3:18 PM CDT Oxygen Saturation 96% 04/04/2017 3:18 PM CDT Inhaled Oxygen Concentration - - Weight 83.9 kg (185 lb) 04/04/2017 3:18 PM CDT Height 180.3 cm (5' 11 ) 04/04/2017 3:18 PM CDT Body Mass Index 25.8 04/04/2017 3:18 PM CDT Plan of Treatment Not on file Care Teams Commander Internal Affairs Relationship Specialty Start Date End Date Carla Whiteside MD [address] [place] [address] [place] [id number] PCP - General Family Medicine 04/04/17
--- OUTSIDE RECORDS SUMMARY | 2024-12-24 12:23 | XMS_ITS | Clinical Summary ---
Author Organization [facility] Address [address] [place] [phone] Phone Care Team Providers Care Transcription Coordinator Name Role Phone Carla Whiteside MD Primary Care Provider + Allergies Active Allergy Reactions Criticality Noted Date Comments Codeine Unknown 12/04/2021 Penicillins Rash Medium 04/04/2017 Medications pantoprazole (PROTONIX) 40 MG Tablet Delayed Response 2 Active rOPINIRole (REQUIP) 0.5 MG Tablet TAKE 1 TABLET BY MOUTH EVERYDAY AT BEDTIME 2 Active albuterol 108 (90 Base) MCG/ACT Aerosol Solution ProAir HFA 90 mcg/actuation aerosol inhaler Inhale 2 puffs every 4-6 hours by inhalation route as needed. Active Social History Tobacco Use Types Packs/Day Years Used Date Smoking Tobacco: Never Smokeless Tobacco: Never Alcohol Use Standard Drinks/Week Comments Not Currently 0 (1 standard drink = 0.6 oz pur e alcohol) Sex and Gender Information Value Date Recorded Sex Assigned at Not on file Legal Sex Male 5:15 PM CDT Gender Identity Not on file Sexual Orientation Not on file Last Filed Vital Signs Vital Sign Reading Time Taken Comments Blood Pressure 124/76 06/17/2022 5:22 PM CDT Pulse 55 06/17/2022 5:22 PM CDT Temperature 36.7 ??C (98.1 ??F) 06/17/2022 5:22 PM CD T Respiratory Rate 18 06/17/2022 5:22 PM CDT Oxygen Saturation 97% 06/17/2022 5:22 PM CDT Inhaled Oxygen Concentration - - Weight - - Height - - Body Mass Index - - Plan of Treatment Health Maintenance Due Date Last Done Comments Hepatitis C Virus (HCV) Screening 1972 Hepatitis B Immunization (1 of 3 - 19+ 3-dose series) 1991 Colonoscopy 2017 Colorectal Cancer Screening 2017 Cologuard 2022 Immunochemical Fecal Occult Blood 2022 Pneumococcal Immunization (5 0+ years) (1 of 1 - PCV) 2022 Zoster Immunization (1 of 2) 2022 Influenza Immunization (#1) 2024 SARS-COV-2 Immunization ( - 2023-25 season) 2024 Respiratory Syncytial Virus (RSV) Immunization (Adult) (1 - 1-dose 75+ series) 2047 DTaP/Tdap/Td Immunization Discontinued 10/10/2016 TdaP Immunization Completed 10/10/2016 Meningococcal Immunization (ACWY) Aged Out No longer eligible based on patient's age to complete this topic Pneumococcal Immunization Combined Aged Out No longer eligible based on patient's age to complete this topic Rotavirus Immunization Aged Out No lo nger eligible based on patient's age to complete this topic Insurance Care Teams Transcription Coordinator Relationship Specialty Start Date End Date Carla Whiteside MD [address] [place] [id number] PCP - General Family Medicine 7/17/22
--- OUTSIDE RECORDS SUMMARY | 2024-12-24 12:23 | XMS_ITS | Clinical Summary ---
Author Organization [facility] Address [address] [place] [address] Care Team Providers Care Pharmacy Sales Representative Name Role Phone Carla Whiteside MD Primary Care Provider [phone] Source Comments [facility],non-owned Affiliates and Associated Physician Practices is amultiple site organization consisting of ambulatory clinics and hospital sitesin [place], [place], [place] and [place]. This disclosure is being madepursuant to the Care Everywhere program and may not contain all information available regarding this patient. Last updated 18.[facility] Allergies Active Allergy Reactions Criticality Noted Date [...] 04/04/2017 3:18 PM CDT Plan of Treatment Health Maintenance Due Date Last Done Comments COLOGUARD (AGES 45-75) - COL ON CA SCREENING 1972 COLON MONITORING 1972 COLONOSCOPY - COLON CA SCREENING 1972 CT COLONOGRAPHY - COLON CA SCREENING 1972 Colorectal Cancer Screening 1972 FIT - COLON CA SCREENING 1972 FLEX SIG - COLON CA SCREENING 1972 LIPID TESTING 1972 HIV SCREENING 1987 HEPATITIS C SCREENING 03/14/1990 DTAP/TDAP/TD VACCINES (1 - Tdap) 1991 HEPATITIS B VACCINE (1 of 3 - 19+ 3-dose series) 1991 PNEUMOCOCCAL VACCINE 50+ (1 of 1 - PCV) 2022 ZOSTER VACCINE (1 of 2) 2022 COVID-19 VACCINE (1 - 2023-2 5 season) 2024 INFLUENZA VACCINE (#1) 2024 DEPRESSION SCREENING 12/02/2024 HIB VACCINE Aged Out No longer eligi ble based on patient's age to complete this topic HPV VACCINE Aged Out No longer eligi ble based on patient's age to complete this topic MENINGOCOCCAL (Group B) VACCINE Aged Out No longer eligible based on patient's age to complete this topic MENINGOCOCCAL VACCINE Aged Out No oleg william eligible based on patient's age to complete this topic PNEUMOCOCCAL VACCINE Aged Out No long er eligible based on patient's age to complete this topic Care Teams Pharmacy Sales Representative Relationship Specialty Start Date End Date Carla Whiteside MD [address] [place] [address] [place] [address] PCP - General Family Medicine 04/04/17
--- OUTSIDE RECORDS SUMMARY | 2024-12-24 12:23 | XMS_ITS | Patient Health Summary ---
Author Organization [facility] Address [address] [place] [address] Care Team Providers Care Carton Counter Feeder Name Role Phone Carla Whiteside MD Primary Care Provider [phone] [facility],non-owned Affiliates and Associated Physician Practices is amultiple site organization consisting of ambulatory clinics and hospital sitesin [place], [place], [place] and [place]. This disclosure is being madepursuant to the Care Everywhere program and may not contain all information available regarding this patient. Last updated 18.[facility] Allergies * Penicillins(Rash) -Medium Criticality Medications * Be aware that medications may not be up to date on this document. Alwaysverify current medications with the patient. * PANTOPRAZOLE SODIUM PO Active Problems No known active problems Social [...] Mass Index 25.8 04/04/2017 3:18 PM CDT Procedures * STREP A SCREEN - POINT OF CARE (AMB) STL(Performed 04/04/2017) Performed for Pharyngitis, streptococcal, acute Results * (ABNORMAL) STREP A SCREEN - POINT OF CARE (AMB) STL (04/04/2017) Strep A Rapid POCT Positive(A) Negative Strep A Internal Control Present Lot # [id number] Expiration Date 12/13/2018 Throat ENTIRE THROAT (SURFACE REGION OF NECK) / Unknown 04/04/2017 Lisha Jones COUPLES THERAPIST-PETROLEUM ENGINEERING TEACHER LAB - POINT OF C ARE ORDERABLES Care Teams Carton Counter Feeder Relationship Specialty Start Date End Date Carla Whiteside MD [address] [place] [phone] PCP - General Family Medicine 04/04/17
--- OUTSIDE RECORDS SUMMARY | 2024-12-24 12:24 | XMS_ITS | Referral Summary ---
Author Organization [facility] [address] Address [address] [place] [address] Care Team Providers Care Lung Puller Name Role Phone Carla Whiteside MD Primary Care Provider + Allergies Active Allergy Reactions Criticality Noted Date Comments Codeine Unknown 12/04/2021 Penicillins Rash Medium 04/04/2017 Medications albuterol HFA (ProAir HFA) 90 mcg/actuation inhaler ProAir HFA 90 mcg/actuation aerosol inhaler Inhale 2 puffs every 4-6 hours by inhalation route as needed. Active pantoprazole DR (PROTONIX) 40 mg EC tablet Active rOPINIRole (REQUIP) 0.5 mg tablet ropinirole 0.5 mg tablet Active Active Problems Problem Noted Date Diagnosed Date History of COVID-19 12/04/2021 Patent foramen ovale 12/04/2021 Right bundle branch block 12/04/2021 Social History Tobacco Use Types Packs/Day Years Used Date Smoking Tobacco: Never Smokeless Tobacco: Never Personal Safety Answer Date Recorded Getting School Help Needed Not on file 02/13 Sex and Gender Information Value Date Recorded Sex Assigned at Not on file Legal Sex Male 10:22 AM BURGLAR ALARM SUPERINTENDENT Gender Identity Not on file Sexual Orientation Not on file Last Filed Vital Signs Vital Sign Reading Time Taken Comments Blood Pressure 126/80 12/04/2021 7:53 AM BURGLAR ALARM SUPERINTENDENT Pulse 67 12/04/2021 7:53 AM BURGLAR ALARM SUPERINTENDENT Temperature - - Respiratory Rate - - Oxygen Saturation 97% 12/04/2021 7:53 AM BURGLAR ALARM SUPERINTENDENT Inhaled Oxygen Concentration - - Weight 88.7 kg (195 lb 8 oz) 12/04/2021 7:53 AM BURGLAR ALARM SUPERINTENDENT Height 180.3 cm (5' 11 ) 12/04/2021 7:53 AM BURGLAR ALARM SUPERINTENDENT Body Mass Index 27.27 12/04/2021 7:53 AM BURGLAR ALARM SUPERINTENDENT Plan of Treatment Not on file Insurance [employer] CHO[employer] PR [employer] [facility] Care Teams Lung Puller Relationship Specialty Start Date End Date Carla Whiteside MD [address] [place] [address] [address] [place] [id number] PCP - General Family Medicine 10/31/21
--- OUTSIDE RECORDS SUMMARY | 2024-12-24 12:24 | XMS_ITS | Clinical Summary ---
Author Organization [facility] [address] Address [address] [place] [address] Care Team Providers Care Pyrometer Temperature Regulator Name Role Phone Carla Whiteside MD Primary Care Provider + Allergies Active Allergy Reactions Criticality Noted Date Comments Codeine Unknown 12/04/2021 Penicillins Rash Medium 04/04/2017 Medications albuterol HFA (ProAir HFA) 90 mcg/actuation inhaler ProAir HFA 90 mcg/actuation aerosol inhaler Inhale 2 puffs every 4-6 hours by inhalation route as needed. Active pantoprazole DR (PROTONIX) 40 mg EC tablet 2 Active rOPINIRole (REQUIP) 0.5 mg tablet ropinirole 0.5 mg tablet Active Active Problems Problem Noted Date Diagnosed Date History of COVID-19 12/04/2021 Patent foramen ovale 12/04/2021 Right bundle branch block 12/04/2021 Surgical History Surgery Date Site/Laterality Comments HERNIA REPAIR HEMORROIDECTOMY Medical History Medical History Date Comments Acute respiratory failure with hypoxia (CMS/HCC) ([facility]) Clinical diagnosis of COVID-19 Restless leg syndrome Gastroesophageal reflux disease Pleural effusion Abnormal echocardiogram Chronic kidney disease Diverticulitis Murmur Family History Medical History Relation Name Comments Skin cancer Father COPD Mother Hypertension Mother Relation Name Status Comments Father (Age 69) Mother Alive Social History Tobacco Use Types Packs/Day Years Used Date Smoking Tobacco: Never Smokeless Tobacco: Never Personal Safety Answer Date Recorded Getting School Help Needed Not on file 02/13 Sex and Gender Information Value Date Recorded Sex Assigned at Not on file Legal Sex Male 10:22 AM GLOBAL ACCOUNT MANAGER Gender Identity Not on file Sexual Orientation Not on file Obstetrics History Last Filed Vital Signs Vital Sign Reading Time Taken Comments Blood Pressure 126/80 12/04/2021 7:53 AM GLOBAL ACCOUNT MANAGER Pulse 67 12/04/2021 7:53 AM GLOBAL ACCOUNT MANAGER Temperature - - Respiratory Rate - - Oxygen Saturation 97% 12/04/2021 7:53 AM GLOBAL ACCOUNT MANAGER Inhaled Oxygen Concentration - - Weight 88.7 kg (195 lb 8 oz) 12/04/2021 7:53 AM GLOBAL ACCOUNT MANAGER Height 180.3 cm (5' 11 ) 12/04/2021 7:53 AM GLOBAL ACCOUNT MANAGER Body Mass Index 27.27 12/04/2021 7:53 AM GLOBAL ACCOUNT MANAGER Plan of Treatment Health Maintenance Due Date Last Done Comments Colon Cancer Screening-Colonoscopy 1972 Depression Screening 1972 Hepatitis C Screening 1972 Prostate Cancer Screening-PSA 1972 Hepatitis B Screening 1990 Regular Well Visit/Exam 18-64 1990 Zoster Vaccine (1 of 2) 2022 Influenza Vaccine (#1) 2024 DTaP/Tdap/Td Vaccine (2 - Td or Tdap) 10/10/2026 10/10/2016 Pneumococcal vaccine <65 Aged Out No longer eligible based on patient's age to complete this topic Insurance [employer] Care Teams Pyrometer Temperature Regulator Relationship Specialty Start Date End Date Carla Whiteside MD [address] [place] [address] [address] PCP - General Family Medicine 10/31/21
== END 2024-12-21 09:20 | disposition home or self-care (01) ==
PROVIDERS: PCP Nurse Practitioner Family; Visit Provider Nurse Practitioner Family
DX: M47.816 Spondylosis without myelopathy or radiculopathy, lumbar region (principal)
CPT/HCPCS: 72100

== ENCOUNTER 2025-01-05 13:36 | Outpatient (CLI) | payer BC, SELFPAY ==
--- NOTE | ~2025-01-05 | US_ITS ---
US soft tissue groin LT 01/05/2025 14:22 Indication: Pelvic and perineal pain. Pain in the left groin area. History of left inguinal hernia re pair. Procedure: High-resolution Limited ultrasound of the left inguinal location Comparison: No prior studies for comparison. Findings: Normal heterogeneous soft tissues without discrete solid or cystic mass. No evidence for he rnia. Consider correlation with CT pelvis. Impression: 1: Unremarkable soft tissue ultrasound of the left inguinal location. No hernia identified. Consider correlation with CT. Reviewed, dictated and finalized at location B. INED RAIL OPERATOR Impression: 1: Unremarkable soft tissue ultrasound of the left inguinal location. No hernia identified. Consider correlation with CT.
--- NOTE | ~2025-01-05 | US_ITS ---
EXAMINATION: US scrotum doppler DATE: 01/05/2025 14:22 INDICATION: Left testicular pain TECHNIQUE: Testicular sonogram utilizing grayscale and Doppler COMPARISON: None. FINDINGS: The right testis measures 3.7 x 2.1 x 2.8 cm. The left testis measures 3.4 x 2.2 x 3.0 cm. There are several scattered tiny echogenic microcalcifications in both testes. Otherwise symmetric normal daily debbie appearance to both testes. There is normal vascular flow to both testes. The right epididymis is normal with normal vascular flow. 1.1 cm anechoic left epididymal cyst. The left epididymis is other hernández normal with normal vascular flow. There is a moderate-sized left sided hydrocele with one-2 mm t hick internal septation. IMPRESSION: 1. Septated moderate-sized left hydrocele. 2. Bilateral mild testicular microlithiasis. Reviewed, dictated and finalized at location A. MS ANALYST
== END 2025-01-05 13:37 | disposition home or self-care (01) ==
PROVIDERS: PCP Nurse Practitioner Family; Visit Provider Nurse Practitioner Family
DX: N50.89 Other specified disorders of the male genital organs (principal); N43.3 Hydrocele, unspecified
CPT/HCPCS: 76870; 76882; 93976